=== PATIENT | female | born 1990 | race Two or more races ===

== ENCOUNTER 2024-08-21 14:26 | Observation (INO) | payer BC, OTHER, SELFPAY ==
[2024-08-21 14:38] VITALS: BP 122/86; PULSE 92
[2024-08-21 14:52] VITALS: BMI 30.7
[2024-08-21 14:58] LABS: ROM Kit Lot # 57805053; ROM Swab Mixed By: ASATOA1; Rupture of Fetal Membranes Negative (Negative); Swb Mxed in Solvent 1 min? Yes
[2024-08-21 15:08] VITALS: BP 114/89; PULSE 85
[2024-08-21 15:38] VITALS: BP 119/84; PULSE 82
== END 2024-08-21 15:55 | disposition home or self-care (01) ==
PROVIDERS: Admitting Provider Nurse Practitioner Women's Health; Visit Provider Nurse Practitioner Women's Health
DX: Z34.83 Encounter for supervision of other normal pregnancy, third trimester (principal); Z3A.39 39 weeks gestation of pregnancy
CPT/HCPCS: 59025; 59899; 84112; G0378

== ENCOUNTER 2024-08-25 04:06 | Inpatient (IN) | payer BC, OTHER, SELFPAY ==
[2024-08-25] VITALS (116 sets, daily range): BP systolic 123–181; BP diastolic 71–118; PULSE 69–115; RESP 16–18; TEMP 36.8–37.1; O2SAT 90–100; BMI 30.8
[2024-08-25 04:52] LABS: Basophils % (Auto) 0 % (0-2.5); Eosinophils # (Auto) 0.1 Thou/mm3 (0.0-0.5); Eosinophils % (Auto) 1 % (0-10); Hematocrit 34.6 % (36.0-46.0); Hemoglobin 12.2 g/dL (12.0-16.0); Immature Granulocytes % (Auto) 0 % (0-0); Immature Granulocytes Auto 0.04 Thou/mm3 (0.00-0.00); Lymphocytes # (Auto) 1.6 Thou/mm3 (1.0-4.8); Lymphocytes % (Auto) 18 % (10-50); Mean Corpuscular HGB Conc 35.3 g/dl (31.0-37.0); Mean Corpuscular Hemoglobin 28.3 pg (25.0-35.0); Mean Corpuscular Volume 80 fL (80-100); Monocytes # (Auto) 0.7 Thou/mm3 (0.0-0.8); Monocytes % (Auto) 7 % (0-12); Neutrophils # (Auto) 6.7 Thou/mm3 (1.8-7.7); Neutrophils % (Auto) 73 % (37-80); Nucleated Red Blood Cell % 0 /100 WBC (0); Platelet Count 301 Thou/mm3 (140-440); RDW Standard Deviation 43.1 fL (36.4-46.3); Red Blood Count 4.31 Miln/mm3 (4.00-5.20); White Blood Count 9.2 Thou/mm3 (3.6-11.0)
[2024-08-25 05:29] LABS: Collection Type, Urine Clean Catch
[2024-08-25 05:48] LABS: Bilirubin,Urine Negative (Negative); Blood,Urine Negative (Negative); Clarity,Urine Clear (Clear/Hazy); Color,Urine Lt-Yellow (Lt Yel-Yel); Glucose, Urine Negative (Negative); Ketones,Urine Negative (Negative); Leukocyte Esterase,Urine Negative (Negative); Nitrite,Urine Negative (Negative); Protein,Urine Negative (Neg - Trace); RBC,Urine 2 /hpf (0-3); Specific Gravity,Urine 1.009 (1.001-1.035); Squamous Epithelial Cell,Urine 1 /hpf (0-5); Urobilinogen,Urine Negative mg/dL (0.0-1.0); WBC,Urine 1 /hpf (0-5)
--- NOTE | 2024-08-25 06:00 | ESHP_ITS ---
Documentation for date of: 08/25/24 OB Labor/Induct. HPI History of Present Illness Chief complaint: 33 y/o 40w 0d presents to L&D in labor at 4 cm mony 2-3 min : 3 Para: 2 Term pregnancies: 2 pregnancies: 0 Living children: 2 History of Abortions: Spontaneous and Elective: 0 History of Vaginal deliveries: 2 History of sections: No History of : No LIBORIO: 08/25/24 Gestational Age (weeks): 40 Gestational Age (days): 0 History of present illness: 33 y/o 40w 0d presents to L&D in labor at 4 cm mony 2-3 minutes cervix is 4/80/-1 vertex, bulging bag, GBS is beg. has been uncomplicated with the exception of anemia. Pt has a hx of nvdx2. EFW 3200g History of Present Dating criteria: LMP confirmed by 1st trimester US Adequate Care: Yes Ultrasounds: normal 1st trimester US and normal mid trimester US Obstetrical complications: other (anemia) Labs Maternal Blood Type: O Pos Labs: Positive: Rubella Titre, Negative: RPR, Hepatitis B, HIV, Chlamydia, Gonorrhea and Group Beta Strep and Unknown: Herpes Type 1, Herpes Type 2 and Covid-19 Review of Systems Review of Systems Systems Reviewed: All systems reviewed, normal except as documented Past Medical History Surgical History SURGICAL: Negative Section Meds Home Medications and Allergies Home Medications ?Medication ?Instructions ?Recorded ?Confirmed ?Type vitamins-iron fumarate 27 1 tab PO DAILY 11/19/19 08/25/24 History mg iron-folic acid 0.8 mg tablet ( Vitamin) Allergies Allergy/AdvReac Type Severity Reaction Status Date / Time No Known Allergies Allergy Verified 08/25/24 05:50 OB Exam Physical Exam Vital signs: Pulse BP Pulse Ox 77 145/92 H 96 08/25/24 05:57 08/25/24 05:57 08/25/24 05:55 Constitutional Constitutional: mild distress (Secondary to painful contractions) Routine HEENT Exam Head: Present normocephalic and atraumatic Eye: Present EOMI and PERRL ENT: Present mucous membranes moist Routine Neck Exam Neck: Present full ROM Routine Respiratory Exam Respiratory: Absent respiratory distress Routine Cardiovascular Exam Cardiovascular: Present RRR Routine Abdominal Exam Abdominal: Present soft Comments: Gravid uterus Estimated weight 3200 g Routine Exam External: Present normal urethra appearance; Absent lesions Detailed Labor and Delivery Exam Dilation (cm): 4 Effacement (%): 80 Cervix position: posterior station: -1 Consistency: soft Presentation: Vertex Membranes: intact Baseline heart rate: 145 monitor accelerations: 15x15 monitor decelerations: Early FDC variability: Moderate (11-25) Contraction frequency (min): 2-3 Contraction duration (sec): 40-60 Tachysystole: No Contraction intensity: Moderate Routine Extremities Exam Extremities: Present full ROM Routine Back/Spine/Pelvis Exam Back/Spine: Present full ROM Routine Skin Exam Skin: Present intact, dry and warm Routine Neurological Exam Neurological: Present alert, oriented X3 and CN II-XII intact Routine Psychiatric Exam Psychiatric: Present normal affect and normal thought process OB Results Labs 08/25/24 04:39 08/25/24 05:18 Labs: Short CBC 08/25/24 Range/Units 04:39 WBC 9.2 (3.6-11.0) Thou/mm3 Hgb 12.2 (12.0-16.0) g/dL Hct 34.6 L (36.0-46.0) % Plt Count 301 (140-440) Thou/mm3 Urine 08/25/24 Range/Units 05:18 Urine Color Lt-Yellow (Lt Yel-Yel) Urine Clarity Clear (Clear/Hazy) Urine pH 7.0 (5.0-7.0) Ur Specific [place] 1.009 (1.001-1.035) Urine Protein Negative (Neg - Trace) Urine Glucose (UA) Negative (Negative) OB Assessment & Plan Assessment and Plan (1) Normal labor: Status: Acute (2) Anemia affecting in third trimester: Status: Acute (3) 40 weeks gestation of : Status: Acute Additional Plan Induction method: none Plan: anticipate NVD and consult MD garcia Additional Plan Comment: Routine admit orders PIH labs Continuous EFM
[2024-08-25 06:04] LABS: Fibrinogen 446 mg/dL (175-375); INR 0.9 (0.9-1.3); Partial Thromboplastin Time 24.6 Seconds (22.0-36.0); Prothrombin Time 10.2 Seconds (9.0-12.2)
[2024-08-25 06:09] LABS: Alanine Aminotransferase 12 U/L (10-49); Albumin, Serum 4.1 gm/dL (3.5-5.0); Albumin/Globulin Ratio 1.6 (1.2-2.2); Alkaline Phosphatase 140 U/L (46-116); Anion Gap 10 (7-16); Aspartate Amino Transferase 16 U/L (0-34); BUN/Creatinine Ratio 14 Ratio (12-20); Bilirubin,Total 0.4 mg/dL (0.3-1.2); Blood Urea Nitrogen 7 mg/dL (9-23); Carbon Dioxide 21.6 mMol/L (20.0-31.0); Chloride 103 mMol/L (98-107); Creatinine (Component) 0.5 mg/dL (0.6-1.3); Estimated Creatinine Clearance 153.2 mL/min (>60); Globulin 2.6 gm/dL (2.3-3.5); Glucose 106 mg/dL (74-106); Osmolality,Calculated 268 (275-295); Potassium 3.3 mMol/L (3.4-5.1); Sodium 135 mMol/L (136-145); Total Protein 6.7 gm/dL (5.7-8.2); Uric Acid 2.5 mg/dL (3.1-7.8); eGFR > 60 See Note
[2024-08-25 06:21] LABS: Syphilis Nonreactive (Nonreactive)
--- NOTE | 2024-08-25 06:21 | PD.LDPN ---
Documentation for date of: 08/25/24 OB Labor Progress Note Pelvic Exam Dilation (cm): 5 Effacement (%): 90 station: 0 Amniotic membrane status: Ruptured (AROM- moderate mec) Contractions Monitor mode: External Contraction frequency: 2-3 Contraction duration: 40-60 Contraction intensity: Moderate Status status: Category l Assessment and Plan Assessment: active labor Plan OB labor note: continuous present management Comments: Pt has some elevated BPs, PIH labs ordered Labetalol per protocol Advised pt to get an epidural, pt declined, she'll do IV meds now AROM performed- moderate mec noted Anticipate
[2024-08-25] MEDS: fentaNYL CIT INJ 50 mCg/ML AMP 2ML 100 MCG IV ×3 (06:51→11:30)
--- NOTE | 2024-08-25 07:15 | PD.LDPN ---
Documentation for date of: 08/25/24 OB Labor Progress Note Pain Control Pain control: tolerating well Pelvic Exam Dilation (cm): 7 Effacement (%): 90 station: 0 Amniotic membrane status: Ruptured (AROM- moderate mec) Contractions Monitor mode: External Contraction frequency: 2-3 Contraction duration: 40-60 Contraction intensity: Moderate Status status: Category l Assessment and Plan Assessment: active labor Plan OB labor note: continuous present management Comments: Pt is progressing well Received 1 dose of fentanyl Anticipate
[2024-08-25] MEDS: RINGERS LACTATED 1000 ML 1,000 ML 100 ML IV (07:30)
[2024-08-25] MEDS: OXYTOCIN in NS 20 units 20 UNIT/1,000 ML BAG 125 UNIT IV (11:30)
[2024-08-25] MEDS: MISOPROSTOL 200 mCg TABLET 800 MCG PR (11:34)
[2024-08-25] MEDS: TRANEXAMIC ACID 1,000 MG IVPB 1,000 MG/100 ML BAG 200 MG IV (11:35)
[2024-08-25] MEDS: BENZO/LANO/ALOE (Dermoplast) 60 GM CAN 1 SPRAY TOP (12:20)
--- NOTE | 2024-08-25 15:36 | OBDSUM_ITS ---
Data ([facility]) Data Hx Section: No : 3 Para: 2 Term: 2 : 0 : 0 Delivery Data ([facility]) Labor Data ROM Date: 08/25/24 ROM Time: 03:00 Rupture Type: SROM Amniotic Fluid: Thin Meconium Delivery Data Labor Onset Stage 1 Date: 08/25/24 Labor Onset Stage 1 Time: 04:00 Labor Onset Stage 2 Date: 08/25/24 Labor Onset Stage 2 Time: 11:20 Delivery Date: 08/25/24 Delivery Time: 11: Placenta Delivery Date: 08/25/24 Placenta Delivery Time: Delivered by: Fernando Noriega Delivery nurse: Suraj Murillo Other staff at delivery: Nursery Nurse Other staff at delivery: Candice Lowry Delivery Method Delivery: Vaginal Delivery Type: Spontaneous Presentation: Vertex Anesthesia Type Primary Anesthesia: None Placenta Placenta Delivery: Spontaneous EBL Estimated blood loss (ml): 400 Data ([facility]) [place] Data Gender: Male Weight Grams: 3540 1 Minute Total: 8 5 Minute Total: 9 Additional Comments Additional comments: Patient pushed actively and delivered from MARIO Shoulders and pelvis delivered atraumatically. Placenta delivered intact. Perineum intact,
[2024-08-26] VITALS: BP 127/89; PULSE 89; RESP 19; TEMP 36.4; O2SAT 98
[2024-08-26 06:12] LABS: Basophils % (Auto) 0 % (0-2.5); Eosinophils # (Auto) 0.1 Thou/mm3 (0.0-0.5); Eosinophils % (Auto) 1 % (0-10); Hematocrit 27.5 % (36.0-46.0); Hemoglobin 9.4 g/dL (12.0-16.0); Immature Granulocytes % (Auto) 0 % (0-0); Immature Granulocytes Auto 0.05 Thou/mm3 (0.00-0.00); Lymphocytes # (Auto) 2.1 Thou/mm3 (1.0-4.8); Lymphocytes % (Auto) 15 % (10-50); Mean Corpuscular HGB Conc 34.2 g/dl (31.0-37.0); Mean Corpuscular Hemoglobin 28.3 pg (25.0-35.0); Mean Corpuscular Volume 83 fL (80-100); Monocytes # (Auto) 0.9 Thou/mm3 (0.0-0.8); Monocytes % (Auto) 7 % (0-12); Neutrophils # (Auto) 10.8 Thou/mm3 (1.8-7.7); Neutrophils % (Auto) 77 % (37-80); Nucleated Red Blood Cell % 0 /100 WBC (0); Platelet Count 268 Thou/mm3 (140-440); Red Blood Count 3.32 Miln/mm3 (4.00-5.20)
[2024-08-26 07:15] VITALS: BP 117/79; PULSE 88; RESP 16; TEMP 36.6; O2SAT 98
--- NOTE | 2024-08-26 07:24 | PC.NURSE ---
MW made aware of cbc, no new orders
--- NOTE | 2024-08-26 08:37 | ESDS_ITS ---
DS: Providers Provider Date of admission: 08/25/24 04:28 Primary care physician: Physician No Primary/Family Admitting Provider: Larry Goyal MD Attending Provider on Admission: Yolanda Knott CNM Consults: 08/25/24 11:49 Referral Routine Comment: Attending Provider on DC: Yolanda Knott CNM Discharging Provider: Yolanda Knott CNM Anticipated date of discharge: 08/26/24 DS: Diagnosis Discharge Diagnosis (1) Normal spontaneous vaginal delivery: Status: Acute (2) care following vaginal delivery: Status: Acute (3) Anemia affecting in third trimester: Status: Acute (4) 40 weeks gestation of : Status: Acute (5) Normal labor: Status: Acute Problem List Completed Was Problem List Reviewed/Reconciled?: Yes Summary/Hosp Course Brief History: 33 y/o 40w 0d presents to L&D in labor at 4 cm mony 2-3 minutes cervix is 4/80/-1 vertex, bulging bag, GBS is beg. has been uncomplicated with the exception of anemia. Pt has a hx of nvdx2. EFW 3200g 08/25/24: viable male infant, no lacerations 08/26/24: day 1. Patient is stable and afebrile doing well and . Denies dizziness shortness of breath or pain. Patient reports bleeding is minimal. Patient is breast-feeding. Uterus is nontender fundus firm minimal lochia. Discharge instructions given. Patient to follow-up with Yolanda Knott CNM in 3 weeks Peripartum Data Delivery Method: Normal Vaginal Delivery Episiotomy Description: None Laceration Description: no complications: none 1: Gender: Male Disposition of : home Status at Discharge Cognitive/behavioral status at discharge: Alert and oriented x 3 Functional status at discharge: independent ambulation Overall status at discharge: patient is progressing back to baseline Time Spent with Patient Time attestation: Total time spent providing and/or coordinating discharge services: Time spent: Greater than 30 minutes Exam Vital Signs Temp Pulse Resp BP Pulse Ox O2 Del Method 97.9 F 88 16 117/79 98 Room Air 08/26/24 07:15 08/26/24 07:15 08/26/24 07:15 08/26/24 07:15 08/26/24 07:15 08/26/24 07:15 Constitutional Constitutional: no acute distress Routine HEENT Exam Head: Present normocephalic and atraumatic Eye: Present EOMI, PERRL and normal accommodation ENT: Present mucous membranes moist Routine Neck Exam Neck: Present supple, full ROM and trachea midline Routine Respiratory Exam Respiratory: Present chest non-tender, lungs clear, normal breath sounds and no resp distress Routine Cardiovascular Exam Cardiovascular: Present RRR Routine Abdominal Exam Abdominal: Present soft and normoactive bowel sounds; Absent tenderness or distended Comments: Uterus nontender fundus firm Routine Exam Patient deferred: external exam Routine Extremities Exam Extremities: Present full ROM Routine Back/Spine/Pelvis Exam Back/Spine: Present full ROM Routine Skin Exam Skin: Present intact, dry and warm Routine Neurological Exam Neurological: Present alert, oriented X3 and CN II-XII intact Routine Psychiatric Exam Psychiatric: Present normal affect and normal thought process Discharge Plan Plan Patient Disposition: HOME (Self Care) Patient condition on transfer: Stable Prescriptions/Referrals Prescriptions/Med Rec: New ibuprofen 800 mg tablet 800 mg PO Q6H MDD 4 PRN (Reason: pain) Qty: 120 0RF docusate sodium [Colace] 100 mg capsule 100 mg PO BID Qty: 60 0RF lanolin 50 % ointment 1 applic topical TID PRN (Reason: skin irritation) Qty: 15 0RF Tucks (witch karen) 50 % pads, medicated 1 pad topical BID Qty: 100 0RF Continued Vitamin 27 mg iron- 0.8 mg Tablet 1 tab PO DAILY Referrals: No Primary/Family,Physician [Primary Care Provider] - Patient/Caregiver Discharge Instructions Meds to Beds: No Discharge Activity: activity as tolerated Other Discharge Activity Instructions:: Follow-up with Yolanda Knott CNM in 3 weeks Education Materials: After Delivery Concerns, : Caring for Yourself Print Language: Italian Stand Alone Forms: [facility] Award Info., Patient Portal Info Letter Discharge Order Discharge Orders: Discharge (Routine); Ordered 08/26/24 Ordered By: Yolanda Knott Planned Discharge Date 08/26/24
[2024-08-26 08:52] VITALS: BP 135/81; PULSE 96; RESP 18; TEMP 36.8; O2SAT 98
[2024-08-26 11:47] VITALS: BP 133/89; PULSE 86; RESP 18; TEMP 36.9; O2SAT 98
== END 2024-08-26 12:53 | disposition home or self-care (01) | DRG 807 ==
LOC: S4SX 07:20 → S4NX 12:49
PROVIDERS: Obstetrics & Gynecology; Admitting Provider Obstetrics & Gynecology; Visit Provider Nurse Practitioner Women's Health
DX: O76 Abnormality in fetal heart rate and rhythm complicating labor and delivery (principal); Z37.0 Single live birth; O77.0 Labor and delivery complicated by meconium in amniotic fluid; Z3A.40 40 weeks gestation of pregnancy
CPT/HCPCS: 36415; 59025; 80053; 81001; 84112; 84550; 85025; 85384; 85610; 85730; 86780; 86850; 86900; 86901; J2590; J3010; J3490; J7120; S0191; A9270; J1920